=== PATIENT | male | born 1940 | race Hispanic/Latino ===

== ENCOUNTER → 2017-05-31 | Outpatient (CLI) | payer MEDICARE, OTHER ==
[~2017-05-31] MED LIST: IOPAMIDOL 370 MG/ML 200 ML INFUS..BTL INJ ONE; SODIUM CHLORIDE 0.9% 250ML 250 ML ONE
[2017-05-31 10:02] LABS: BLOOD UREA NITROGEN 12 mg/dL (7-26); BUN/CREATININE RATIO 14 (6-25); CREATININE, SERUM 0.86 mg/dL (0.72-1.25); EST GLOMERULAR FILTRATION RATE > 60 ML/MIN (60-)
--- NOTE | 2017-05-31 12:24 | Diagnostic Imaging Report ---
EXAM: CT Abdomen and Pelvis WITHOUT and WITH contrast INDICATION: \[id number] \S\1000 \S\HEMATURIA COMPARISON: None. TECHNIQUE: Abdomen and pelvis were scanned utilizing a multidetector helical scanner from the lung base to the pubic symphysis before and after administration of IV contrast. Coronal and sagittal reformations were obtained. Hematuria (CT Urogram) protocol was performed. Scan was performed pre- in supine position and nephrogenic/excretory phase with a 10 minute split bolus in prone position. IV CONTRAST: 150 mL of Isovue-370. ORAL CONTRAST: Water COMPLICATIONS: None RADIATION DOSE: Total DLP: 1045.56 mGy*cm Estimated effective dose: (DLP x 0.015 x size factor) mSv CTDIvol has been reviewed. It is below the limits set by the Radiation Protocol Committee (RPC). FINDINGS: LINES and TUBES: None. LOWER THORAX: Partially imaged atherosclerotic calcification of coronary arteries. Evaluation of the lung bases are limited by risk motion. 0.3 cm right middle lobe nodule. HEPATOBILIARY: No focal hepatic lesions. No biliary ductal dilation. GALLBLADDER: Small dependent gallstones. No wall thickening. SPLEEN: No splenomegaly. PANCREAS: No focal masses or ductal dilatation. ADRENALS: No adrenal nodules KIDNEYS/URETERS: Kidneys: Normal appearance bilaterally. No hydronephrosis or perinephric stranding. Cyst: Right midpole 2.2 cm cystic lesion with precontrast internal attenuation of 8 Hounsfield units which goes up to 17 Hounsfield units on postcontrast delayed images. Mass: None. Stones: None. Upper collecting systems: No irregularities or filling defects. Ureters: Bilateral distal ureters are not opacified, likely due to peristalsis. Bladder: No mass or filling defects. GI TRACT: No abnormal distention, wall thickening, or evidence of bowel obstruction. Appendix is normal. PELVIC ORGANS/BLADDER: Enlarged prostate gland with median lobe hypertrophy. LYMPH NODES: No lymphadenopathy. VESSELS: Unremarkable. PERITONEUM / RETROPERITONEUM: No free air or fluid. BONES: Generalized demineralization. Exaggerated lordosis of the lumbar spine. SOFT TISSUES: Unremarkable. Small fat-containing umbilical hernia. IMPRESSION: 1. No nephrolithiasis or evidence of obstructive urolithiasis. 2. No filling defects within opacified collecting system/ureters. 3. Left renal parapelvic complex cyst. Recommend follow-up with renal ultrasound in 6 months to ensure stability. 4. Markedly enlarged prostate gland. 5. 3 mm right middle lobe lung nodule. Without risk factors, no follow-up is necessary. With risk factors, follow-up with low-dose chest CT in one year is recommended. 6. Cholelithiasis without evidence of cholecystitis. Signed by: Dr. Mode Darby MD on 05/31/2017 12:21 PM
== END ==
LOC: CT 09:22
PROVIDERS: ATTEND Urology
DX: R31.9 Hematuria, unspecified (principal)
CPT/HCPCS: 36415; 74178; 82565; 84520; J7050; Q9967

== ENCOUNTER → 2018-12-20 | Outpatient (CLI) | payer MEDICARE, OTHER ==
--- NOTE | 2018-12-20 13:40 | Diagnostic Imaging Report ---
Renal ultrasound Clinical History: Renal cyst Comparison: CT abdomen and pelvis, May 31, 2017 Discussion: Sonographic evaluation of the kidneys is performed. The kidneys have normal size and cortical echogenicity. The right kidney measures 11.6 cm in length. The left kidney measures 11.4 cm in length. There is no hydronephrosis or shadowing renal calculus. In the interpolar region left kidney, a 2.2 x 1.8 x 2.1 cm anechoic lesion is noted most consistent with a parapelvic cyst. It is unchanged compared to the prior CT. No perinephric fluid collection is seen. Survey images of the bladder demonstrate no abnormality. The prostate appears diffusely enlarged. Impression: 1 left parapelvic cyst again noted. Otherwise, unremarkable renal ultrasound. Signed by: Dr. Issac Pyle MD on 12/20/2018 1:37 PM
== END ==
LOC: US 11:59
PROVIDERS: ATTEND Urology
DX: N28.1 Cyst of kidney, acquired (principal)
CPT/HCPCS: 76770